=== PATIENT | female | born 1980 | race Two or more races ===

== ENCOUNTER 2017-01-08 10:45 | Emergency (ER) | payer SELFPAY ==
[~2017-01-08] VITALS: Ht 154.9 cm; Wt 97.5 kg
[2017-01-08] MEDS ORDERED: ONDANSETRON ODT 4 MG TAB.RAPDIS ONE (11:40)
[2017-01-08] MEDS ORDERED: ONDANSETRON ODT 4 MG TAB.RAPDIS PO ONE (11:45)
[2017-01-08 12:04] LABS: BILIRUBIN,URINE NEGATIVE (NEG); GLUCOSE,URINE NEGATIVE (NEG); NITRITE,URINE NEGATIVE (NEG); PH,URINE 7.5; PROTEIN,URINE 30 mg/dL (NEG-TRACE); UROBILINOGEN,URINE 0.2 mg/dL (0.2 mg/dL)
--- NOTE | 2017-01-08 12:17 | RAD ---
EXAM: Abdomen acute complete. HISTORY: Pain. COMPARISON: None. FINDINGS: A frontal view of the chest and frontal upright and supine views of the abdomen are obtained. There is no infiltrate, effusion or pneumothorax. There is moderate stool within the proximal colon. There is no bowel obstruction. There is no intraperitoneal free air. IMPRESSION: 1. No acute pulmonary finding. 2. Nonobstructive bowel gas pattern.
[2017-01-08 12:26] LABS: BACTERIA,URINE MODERATE /HPF (0-FEW); SQUAMOUS EPITHELIAL CELL,UR MOD /LPF
[2017-01-08] MEDS ORDERED: DOCU-27 PO (12:36)
[2017-01-08] MEDS ORDERED: POLY17PO5 PO (12:36)
--- NOTE | 2017-01-08 12:37 | PHYS DOC ---
Past Medical History Past Medical History: No Pertinent History Past Surgical History: No Surgical History Alcohol Use: None Drug Use: None Adult General Chief Complaint Chief Complaint: CONTISPATION HPI HPI Patient is a 36 year old female who presents with constipation. Patient reports she has not had a bowel movement for 3 days, last bowel movement was hard & small. She reports generalized upper abdominal pain which has increased today. She reports nausea, denies vomiting. Denies fevers/chills, diarrhea, hematochezia/melena, dysuria/hematuria. Reports history of constipation but never requiring ED visit. She took magnesium citrate at home without relief of symptoms. Denies history of abdominal surgeries, no known past medical history , no medications. No PCP. Patient is [place]ian speaking, accompanied by who is serving as fluent home paraprofessional by the patient's request. Review of Systems Review of Systems Constitutional: Denies fever or chills HENT: Denies nasal congestion or sore throat Respiratory: Denies cough or shortness of breath Cardiovascular: Denies chest pain or edema GI: Reports abdominal pain, nausea, & constipation, denies vomiting, bloody stools or diarrhea : Denies dysuria or hematuria Musculoskeletal: Denies back pain or joint pain Integument: Denies rash Neurologic: Denies headache Current Medications Current Medications Current Medications Medications (Trade) Dose Ordered Sig/Kaiden Start Time Stop Time Status Last Admin Dose Admin Ondansetron HCl (Zofran Odt) 4 mg STK-MED ONCE 01/08/17 11:40 01/08/17 11:41 DC Allergies Allergies Allergies Coded Allergies Type Severity Reaction Last Updated Verified No Known Drug Allergies 01/08/17 No Physical Exam Physical Exam Constitutional: obese, no acute distress, non-toxic appearance. HENT: Normocephalic, atraumatic, bilateral external ears normal, oropharynx moist, nose normal. Eyes: conjunctiva normal, no discharge. Neck: supple, no stridor. Cardiovascular: RRR, no murmurs, no edema. Lungs & Thorax: LCTAB, no wheezing, no respiratory distress. Abdomen: normal bowel sounds, soft, no focal tenderness with palpation particularly in RUQ & RLQ, no rebound/guarding, no masses or pulsatile masses, nondistended. Skin: Warm, dry, no erythema, no rash. Back: No tenderness, no CVA tenderness. Extremities: No tenderness, no edema. Neurologic: Alert and oriented X 3, no focal deficits noted. Psychologic: Affect normal, judgement normal, mood normal. Current Patient Data Vital Signs Vital Signs Date Time Temp Pulse Resp B/P Pulse Ox O2 Delivery O2 Flow Rate FiO2 01/08/17 11:00 97.7 64 24 160/73 99 Room Air 97.7 Lab Values Laboratory Tests Test 01/08/17 10:53 01/08/17 11:45 POC Urine HCG, Qualitative Hcg negative (Negative) Urine Collection Type Unknown Urine Color Yellow Urine Clarity Clear Urine pH 7.5 Urine Specific Radcliffe >=1.030 Urine Protein 30mg/dL (NEG-TRACE) Urine Glucose (UA) Negativemg/dL (NEG) Urine Ketones (Stick) 15mg/dL (NEG) Urine Blood Trace (NEG) Urine Nitrite Negative (NEG) Urine Bilirubin Negative (NEG) Urine Urobilinogen Dipstick 0.2mg/dL (0.2 mg/dL) Urine Leukocyte Esterase Negative (NEG) Urine RBC 3-5/HPF (0-2) Urine WBC 1-4/HPF (0-4) Urine Squamous Epithelial Cells Mod/LPF Urine Bacteria Moderate/HPF (0-FEW) Urine Mucus Marked/LPF Urine Trichomonas EKG EKG [] Radiology/Procedures Radiology/Procedures PROCEDURE: ACUTE ABDOMEN SERIES EXAM: Abdomen acute complete. HISTORY: Pain. COMPARISON: None. FINDINGS: A frontal view of the chest and frontal upright and supine views of the abdomen are obtained. There is no infiltrate, effusion or pneumothorax. There is moderate stool within the proximal colon. There is no bowel obstruction. There is no intraperitoneal free air. IMPRESSION: 1. No acute pulmonary finding. 2. Nonobstructive bowel gas pattern. DICTATED and SIGNED BY: ARI CALDERON MD DATE: 01/08/17 1214 [] Course & Med Decision Making Course & Med Decision Making Pertinent Labs and Imaging studies reviewed. (See chart for details) Patient presents with constipation & mild abdominal pain. No focal tenderness on exam. Acute abdominal series consistent with constipation. No distress, provided prescriptions for colace & miralax, counseled to increase fluid & fiber in diet. Follow up with primary care physician in 2-3 days if not improving, referred to Dr. Dean. Come back for high fever, severe pain, uncontrolled vomiting, any otherwise worsening condition. Discharged home in stable condition. [] Dragon Disclaimer Dragon Disclaimer This electronic medical record was generated, in whole or in part, using a voice recognition dictation system. Departure Departure Impression: Primary Impression: Constipation Disposition: HOME, SELF-CARE Condition: STABLE Referrals: NO PCP (PCP) MOOSE DEAN MD Patient Instructions: Constipation, Adult, [id number] Additional Instructions: You were seen in the emergency department today for constipation. Please increase fluid consumption, eat foods containing fiber. Use Colace and MiraLAX to promote bowel movement. Follow-up with Dr. Dean in the primary care clinic in 2-3 days, or with another physician of choice. Return to the emergency department for high fever, severe pain, uncontrolled vomiting, any otherwise worsening condition. Scripts Polyethylene Glycol 3350 (Miralax)17 Gm Powd.pack1 Packet PO DAILY PRN CONSTIPATION #5 PACKET Ref 0 Prov:TAURUS HURTADO MD 01/08/17 Docusate Sodium (Colace)100 Mg Capsule1 Cap PO BID PRN CONSTIPATION #30 CAP Prov:TAURUS HURTADO MD 01/08/17 TAURUS HURTADO MD Jan 08, 2017 12:37
[2017-01-08 13:10] VITALS: BP 149/70
== END 2017-01-08 13:40 | disposition home or self-care (01) ==
LOC: ER 10:45
DX: K59.00 Constipation, unspecified (principal); E66.9 Obesity, unspecified; Z68.41 Body mass index [BMI] 40.0-44.9, adult
CPT/HCPCS: 74022; 81001; 81025; 87086; 99285; Q0162